=== PATIENT | female | born 1955 | race Caucasian/White ===

== ENCOUNTER 2018-01-04 18:38 | Emergency (ER) | payer BC ==
[2018-01-04 19:08] VITALS: BP 145/76
--- NOTE | 2018-01-04 19:29 | UC ---
Respiratory Complaint HPI - HPI Summary HPI Summary: 62 yo WM c/o cough with productive sputum x 5 days, worsening - History of Current Complaint Chief Complaint: UCRespiratory Stated Complaint: UPPER RESPITORY Hx Obtained From: Patient Onset/Duration: Gradual Onset, Lasting Days Severity Initially: Moderate Severity Currently: Moderate Pain Intensity: 0 - Allergies/Home Medications Allergies/Adverse Reactions: Allergies Allergy/AdvReac Type Severity Reaction Status Date / Time codeine Allergy Nausea Verified 01/04/18 19:11 Home Medications: Home Medications Blood Pressure Medication 01/04/18 [History] PMH/Surg Hx/FS Hx/Imm Hx Previously Healthy: Yes Cardiovascular History: Cardiac Disease Respiratory History: COPD - Surgical History Surgical History: Yes Surgery Procedure, Year, and Place: tubal ligation - Family History Known Family History: Positive: Cardiac Disease - Social History Alcohol Use: Daily Alcohol Amount: glass of wine a day Substance Use Type: None Smoking Status (MU): Never Smoked Tobacco Have You Smoked in the Last Year: No - Immunization History Most Recent Tetanus Shot: 12/2015 Review of Systems Constitutional: Negative Skin: Negative Eyes: Negative ENT: Negative Respiratory: Cough - productive Cardiovascular: Negative Gastrointestinal: Negative Genitourinary: Negative Motor: Negative Neurovascular: Negative Musculoskeletal: Negative Neurological: Negative Psychological: Negative All Other Systems Reviewed And Are Negative: Yes Physical Exam Triage Information Reviewed: Yes Appearance: Well-Appearing Vital Signs: Initial Vital Signs Temp 36.9 C 01/04/18 19:04 Pulse 92 01/04/18 19:04 Resp 16 01/04/18 19:04 BP 145/76 01/04/18 19:04 Pulse Ox 96 01/04/18 19:04 Eye Exam: Normal ENT Exam: Normal Dental Exam: Normal Neck exam: Normal Neck: Positive: 1 Respiratory: Positive: No respiratory distress, Rhonchi - with cough Cardiovascular Exam: Normal Abdominal Exam: Normal Musculoskeletal Exam: Normal Neurological Exam: Normal Psychological Exam: Normal Skin Exam: Normal UC Diagnostic Evaluation - Laboratory O2 Sat by Pulse Oximetry: 96 Respiratory Course/Dx - Differential Dx/Diagnosis Provider Diagnoses: acute bronchitis Discharge - Sign-Out/Discharge Documenting (check all that apply): Discharge/Admit/Transfer - Discharge Plan Condition: Stable Disposition: HOME Prescriptions: Azithromycin TAB* [Zithromax TAB (Z-CRISTIN) 250 mg #6 tabs] 2 tab PO .TODAY, THEN 1 DAILY 5 Days #1 cristin Referrals: No Primary Care Phys,NOPCP [Primary Care Provider] - - Billing Disposition and Condition Condition: STABLE Disposition: HOME
== END 2018-01-04 19:54 | disposition home or self-care (01) ==
LOC: UCCORT 18:38
DX: J44.9 Chronic obstructive pulmonary disease, unspecified (principal); I51.9 Heart disease, unspecified; Z88.5 Allergy status to narcotic agent
CPT/HCPCS: 99212; G0463